=== PATIENT | female | born 1985 | race Caucasian/White ===

== ENCOUNTER → 2019-08-05 | Emergency (ER) | payer OTHER ==
[~2019-08-05] VITALS: Ht 157.5 cm; Wt 102.1 kg
[~2019-08-05] MED LIST: ADIPEX-P37.5 MG; SYNTHROID88 MCG
== END | disposition left against medical advice (07) ==
LOC: ER 02:51
DX: Z53.20 Procedure and treatment not carried out because of patient's decision for unspecified reasons (principal)